=== PATIENT | female | born 1950 | race Hispanic/Latino ===

== ENCOUNTER → 2018-05-11 | Emergency (ER) | payer MEDICARE ==
[~2018-05-11] VITALS: Ht 154.9 cm; Wt 78.9 kg
--- NOTE | 2018-05-11 16:54 | Diagnostic Imaging Report ---
Exam: Left leg 2 views History: Pain Comparison: None. Findings: No fracture or malalignment. Joint spaces preserved. No abnormal soft tissue calcification or soft tissue defect. Impression: No acute osseous abnormality Signed by: Dr. Ever Duong M.D. on 05/11/2018 4:51 PM
--- NOTE | 2018-05-11 16:56 | Diagnostic Imaging Report ---
Exam: Sacrococcyx 2 views History: Pain, fall Comparison: None. Findings: No fracture or malalignment. No displaced fracture. Normal segmentation at the sacrococcygeal junction. Impression: No displaced fracture. Signed by: Dr. Ever Duong M.D. on 05/11/2018 4:52 PM
[2018-05-11 17:54] VITALS: BP 116/75
== END | disposition home or self-care (01) ==
LOC: ER 15:42
DX: S80.12XA Contusion of left lower leg, initial encounter (principal); S30.0XXA Contusion of lower back and pelvis, initial encounter; W18.39XA Other fall on same level, initial encounter; Y93.01 Activity, walking, marching and hiking; Y92.008 Other place in unspecified non-institutional (private) residence as the place of occurrence of the external cause; I10 Essential (primary) hypertension; E78.5 Hyperlipidemia, unspecified
CPT/HCPCS: 72220; 99283